=== PATIENT | female | born 2005 | race Caucasian/White ===

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

== ENCOUNTER 2023-04-23 11:40 | Emergency (ER) | payer SELFPAY ==
[2023-04-23 11:44] VITALS: BP 128/58; PULSE 78; RESP 14; O2SAT 97; BMI 29.9
[2023-04-23 11:50] VITALS: BP 128/58; PULSE 66; RESP 18; O2SAT 97
--- NOTE | 2023-04-23 12:06 | ED_ITS ---
HPI - Female Genitourinary General: Chief complaint: Urogenital-Female Stated complaint: not able to urinate, burning in vaginal area Time Seen by Provider: 04/23/23 11:47 History of Present Illness: Patient presents to the ER with inability to pee and burning. Patient says she did this started today and yesterday she was feeling fine. Patient states she is never had this for. Onset (ago): day(s) (Today) Location of symptoms: urethra and vaginal Severity: mild Urinary symptoms: Difficulty Urinating Exacerbating factors: none Relieving factors: none Associated symptoms: Reports no associated symptoms Review of Systems General: Reports: 10 or more systems reviewed and unremarkable except in HPI and below PFSH ED PFSH: Family History Other No pertinent family history Social History Smoking and tobacco status: never smoked Alcohol intake: never Substance/Drug Use: never Sexually active: No Do you think of yourself as: Straight/Heterosexual Current gender identity: Female Physical Exam Const: COMMON NORMALS: no acute distress, average body habitus, patient oriented x3, no limitations, healthy appearing, alert and well nourished HENMT: COMMON NORMALS: normocephalic, atraumatic, hearing grossly normal bilaterally, external ears normal, Normal external nose present and moist oral mucous membranes HEAD & SCALP: normocephalic and atraumatic NOSE: Normal external nose present EXTERNAL EAR: Yes external ears normal Eye: COMMON NORMALS: Equal, round and reactive pupils present, EOMs intact bilaterally, conjunctivae normal and no scleral icterus CONJUNCTIVA: Yes conjunctivae normal PUPIL: Yes Equal, round and reactive pupils present Neck/C-Spine: COMMON NORMALS: full ROM, no lymphadenopathy, supple, no meningeal signs, no JVD and Thyroid normal THYROID: Thyroid normal Chest: COMMONS NORMALS: normal inspection of the chest and normal palpation of entire chest wall Resp: COMMON NORMALS: normal respiratory effort, No retractions, No use of accessory muscles and clear to auscultation bilaterally AUSCULTATION: clear to auscultation bilaterally Cardio: COMMON NORMALS: no JVD, regular rate, regular rhythm, S1 normal heart sound present, S2 normal heart sound present, No gallops present (Cardio), No clicks present (Cardio), No murmurs present (Cardio) and No rub (Cardio) RATE: regular rate RHYTHM: regular rhythm HEART SOUNDS: S1 normal heart sound present and S2 normal heart sound present GI: COMMON NORMALS: Normal to inspection, nondistended, normoactive bowel sounds present, Soft to palpation, non-tender, No hepatosplenomegaly present and no masses PALPATION: Yes Soft to palpation and Yes No hepatosplenomegaly present Neuro: COMMON NORMALS: patient oriented x3 SENSORIUM/ORIENTATION: Yes alert MENINGEAL SIGNS: Yes no meningeal signs Course Vital Signs: Vital signs: Vital Signs Pulse Rate 66 04/23/23 11:50 Respiratory Rate 18 04/23/23 11:50 Blood Pressure 128/58 04/23/23 11:50 Pulse Oximetry 97 04/23/23 11:50 Oxygen Delivery Me thod Room Air 04/23/23 11:50 MDM - Female Medical Decision Making Patient had a bladder scan done that showed about 20 mL of urine in her bladder. Patient drank some water and then provide us urine sample which did show she has a urinary tract infection. Patient be placed on Cipro antibiotics and discharged home to follow-up with her PCP in approximately 1 week as needed. Differential Diagnosis Unlikely abdominal pain, acute appendicitis, calculus of kidney, constipation, diverticulitis, endometriosis, gastroenteritis, pancreatitis or small bowel obstruction Medical Records I reviewed the patient's medical records. Lab Data I reviewed the patient's lab results. Laboratory Results Urine Color Straw (Yellow) 04/23/23 Unknown Urine Appearance Hazy (CLEAR) A 04/23/23 Unknown Urine pH 7 (5-7) 04/23/23 Unknown Ur Specific [place] 1.005 (1.005-1.030) 04/23/23 Unknown Urine Protein Neg (Negative) 04/23/23 Unknown Urine Glucose (UA) Norm (Normal) 04/23/23 Unknown Urine Ketones Negative (Negative) 04/23/23 Unknown Urine Blood 3+ (Negative) H 04/23/23 Unknown Urine Nitrate Negative (Negative) 04/23/23 Unknown Urine Bilirubin Neg (Negative) 04/23/23 Unknown Urine Urobilinogen Norm mg/dL (Negative) 04/23/23 Unknown Ur Leukocyte Esterase 2+ (Negative) H 04/23/23 Unknown Urine RBC 0-4 /hpf (0-2) H 04/23/23 Unknown Urine WBC 15-25 /hpf (0-5) H 04/23/23 Unknown Ur Squamous Epith Cells 0-4 /hpf (0-5) H 04/23/23 Unknown Amorphous Sediment Not Reportable 04/23/23 Unknown Urine Bacteria 2+ /hpf (NONE) H 04/23/23 Unknown Urine Mucus Trace /hpf 04/23/23 Unknown Discharge Plan Discharge Patient Disposition: Home Clinical Impression: Urinary tract infection Qualifiers: Urinary tract infection type: acute cystitis Hematuria presence: with hematuria Qualified Code(s): N30.01 - Acute cystitis with hematuria Condition: Stable Prescriptions: New ciprofloxacin HCl 500 mg tablet 500 mg PO Q12H Qty: 14 0RF Discharge Orders: Discharge ED (Routine); Ordered 04/23/23 Ordered By: Joseph Mendoza Referrals: Surjit Phillips FNP [Primary Care Provider] - 1 week Patient Instructions: Urinary Tract Infection in Women (ED) Activity Restrictions/Additional Instructions: Please push plenty of fluids. Please take all your antibiotics please follow-up with your PCP in approximately 7 to 10 days as needed. Coding Level of Care Code ED Parts Counter Sales Person for Marlo Hua
--- NOTE | 2023-04-23 12:54 | PC.NURSE ---
Pt given option by nurse if she would like to try PO hydration then try to give a UA instead of having IV hydration then straight cath. Dr. Mendoza is aware
[2023-04-23 14:21] LABS: Urine Appearance Hazy (CLEAR); Urine Color Straw (Yellow); pH Urine 7 (5-7)
[2023-04-23 14:22] LABS: Add Urine Microscopic? YES; Bilirubin Urine Neg (Negative); Blood Urine 3+ (Negative); Glucose Urine UA Norm (Normal); Ketones Urine Negative (Negative); Leukocyte Esterase Urine 2+ (Negative); Nitrate Urine Negative (Negative); Protein Urine Neg (Negative); Specific Gravity, Urine 1.005 (1.005-1.030); Urobilinogen Urine Norm (Negative)
[2023-04-23 14:23] LABS: Add Urine Culture? Yes; Bacteria Urine 2+ /hpf; Mucus Urine TRACE /hpf; RBC Urine 0-4 /hpf (0-2); Squamous Epithelial Cell Urine 0-4 /hpf (0-5); WBC Urine 15-25 /hpf (0-5)
[2023-04-23 14:41] VITALS: BP 115/84; PULSE 70; RESP 18; O2SAT 98
== END 2023-04-23 14:42 | disposition home or self-care (01) ==
PROVIDERS: Emergency Provider Emergency Medicine; PCP Registered Nurse
DX: N30.01 Acute cystitis with hematuria (principal)
CPT/HCPCS: 51798; 81001; 87077; 87086; 87186; 99283

== ENCOUNTER → 2023-08-08 09:49 | Outpatient (BNVA) | payer SELFPAY | PROVIDERS: PCP Registered Nurse; Visit Provider Registered Nurse | DX: R05.9 Cough, unspecified (principal); U07.1 COVID-19 | CPT/HCPCS: 87400; 87426 ==

== ENCOUNTER → 2023-10-17 14:53 | Outpatient (BNVA) | payer MEDICAID, SELFPAY | PROVIDERS: PCP Registered Nurse; Visit Provider Registered Nurse | DX: N92.6 Irregular menstruation, unspecified (principal); Z71.3 Dietary counseling and surveillance | CPT/HCPCS: 81025 ==

== ENCOUNTER 2024-06-11 14:38 | Outpatient (CLI) | payer BC, MEDICAID, SELFPAY ==
[2024-06-11 14:40] VITALS: BMI 32.9
[2024-06-11 14:50] VITALS: BP 136/92; PULSE 85
[2024-06-11 15:06] VITALS: BP 138/87; PULSE 75
[2024-06-11 15:21] VITALS: BP 129/83; PULSE 78
[2024-06-11 15:23] LABS: Basophils % 0.4 %; Eosinophils # 0.1 10^3/uL (0.0-0.8); Eosinophils % 0.5 %; Hematocrit 38.3 % (36-47); Lymphocytes % 28.6 %; Mean Corpuscular HGB Conc 35.5 g/dL (30-55); Mean Corpuscular Hemoglobin 31.1 pg (27-33); Mean Corpuscular Volume 87.4 fl (85-98); Mean Platelet Volume 12.6 fL (7.4-10.4); Monocytes % 9.1 %; Neutrophils # 6.44 10^3/uL (1.8-8.0); Nucleated Red Blood Cells % 0 %; Platelet Count 208 10^3/cmm (157-399); Red Blood Count 4.38 10^6/uL (3.85-5.65); Red Cell Distribution Width 13.4 % (12.1-15.1); White Blood Count 10.55 10^3/uL (4.5-13.0)
[2024-06-11 15:33] LABS: Urine Appearance Cloudy (CLEAR); Urine Color Yellow (Yellow)
[2024-06-11 15:34] LABS: Add Urine Microscopic? YES; Bilirubin Urine 1+ (Negative); Blood Urine Neg (Negative); Glucose Urine UA Norm (Normal); Ketones Urine 1+ (Negative); Leukocyte Esterase Urine 2+ (Negative); Nitrate Urine Positive (Negative); Protein Urine 1+ (Negative); Specific Gravity, Urine 1.015 (1.005-1.030); Urobilinogen Urine 1 mg/dL (Negative); pH Urine 5 (5-7)
[2024-06-11 15:35] VITALS: BP 136/92; PULSE 70
[2024-06-11 15:35] LABS: Add Urine Culture? Yes; Bacteria Urine 2+ /hpf; WBC Urine 15-25 /hpf (0-5)
[2024-06-11 15:45] LABS: Alanine Aminotransferase 9 U/L (0-33); Albumin Level 3.5 g/dL (3.5-5.2); Alkaline Phosphatase 226 U/L (35-105); Anion Gap 17.3 (5-19); Aspartate Amino Transferase 17 U/L (0-32); Blood Urea Nitrogen 11 mg/dL (6-20); Calcium 8.7 mg/dL (8.5-10.5); Carbon Dioxide 18 mmol/L (22-29); Chloride 106 mmol/L (98-107); Globulin 3.1 g/dL (1.3-4.6); Glomerular Filtration Rate 91.4 mL/min (90-130); Glucose 97 mg/dL (65-115); Osmolality Calculated 283 mOsm/kg (285-295); Potassium 4.3 mmol/L (3.5-5.1); Sodium 137 mmol/L (136-145); Total Bilirubin 0.3 mg/dL (0.15-1.2); Total Protein 6.6 g/dL (6.6-8.7); Uric Acid 9.9 mg/dL (2.4-5.7)
[2024-06-11 15:46] LABS: Urine Creatinine 339 mg/dL (28-217)
[2024-06-11 15:47] LABS: UPRO/UCREAT Ratio 0.22 mg/mg CR; Urine Protein Random 73 mg/dL
[2024-06-11 15:50] VITALS: BP 120/80; PULSE 74
== END 2024-06-11 16:08 | disposition home or self-care (01) ==
LOC: OPOB 14:39 → OBGYN 14:40
PROVIDERS: PCP Registered Nurse; Visit Provider Family Medicine
DX: O26.899 Other specified pregnancy related conditions, unspecified trimester (principal); Z3A.00 Weeks of gestation of pregnancy not specified
CPT/HCPCS: 80053; 81001; 82570; 84156; 84550; 85025; 87086

== ENCOUNTER 2024-06-19 01:18 | Inpatient (IN) | payer BC, MEDICAID, SELFPAY ==
[2024-06-19] VITALS (136 sets, daily range): BP systolic 114–171; BP diastolic 64–108; PULSE 53–91; RESP 15–18; TEMP 35.9–37.3; O2SAT 93–100; BMI 34.1
[2024-06-19 01:26] LABS: Basophils % 0.4 %; Eosinophils # 0.1 10^3/uL (0.0-0.8); Eosinophils % 0.7 %; Lymphocytes # 3.9 10^3/uL (1.5-6.5); Lymphocytes % 34.4 %; Mean Corpuscular HGB Conc 36.1 g/dL (30-55); Mean Corpuscular Hemoglobin 31.5 pg (27-33); Mean Corpuscular Volume 87.4 fl (85-98); Mean Platelet Volume 13.4 fL (7.4-10.4); Monocytes % 8.4 %; Neutrophils # 6.38 10^3/uL (1.8-8.0); Neutrophils % 55.8 %; Nucleated Red Blood Cells % 0 %; Platelet Count 200 10^3/cmm (157-399); Red Blood Count 4.35 10^6/uL (3.85-5.65); Red Cell Distribution Width 13.5 % (12.1-15.1); White Blood Count 11.41 10^3/uL (4.5-13.0)
[2024-06-19] MEDS: oxytocin 30 UNIT/500 ML BAG IV (01:53)
[2024-06-19] MEDS: dextrose 5%-lactated ringers 1,000 ML 125 ML IV ×2 (01:53→11:58)
[2024-06-19 02:22] LABS: Bilirubin Urine Negative (Negative); Blood Urine 2+ (Negative); Glucose Urine UA Negative (Normal); Ketones Urine Negative (Negative); Leukocyte Esterase Urine 1+ (Negative); Nitrate Urine Negative (Negative); Protein Urine 2+ (Negative); Specific Gravity, Urine 1.009 (1.005-1.030); Urine Appearance Clear (CLEAR); Urine Color Yellow (Yellow); Urobilinogen Urine 0.2 mg/dL (Negative)
[2024-06-19 02:25] LABS: Bacteria Urine None Seen /hpf; Hyaline Casts Urine 2.05 /lpf; RBC Urine 0-2 /hpf (0-2); Squamous Epithelial Cell Urine 0-5 /hpf (0-5)
[2024-06-19] MEDS: lactated ringers 1,000 ML 999 ML IV (04:45)
[2024-06-19 05:06] LABS: Urine Creatinine 41 mg/dL (28-217)
[2024-06-19 05:07] LABS: Urine Protein Random 53 mg/dL
[2024-06-19 05:08] LABS: UPRO/UCREAT Ratio 1.29 mg/mg CR
--- NOTE | 2024-06-19 06:24 | P.ANESASSM_ITS ---
Pre-Anesthetic Assessment Height/Weight: Height 1.65 m Weight 92.986 kg Temp Pulse BP Pulse Ox 97.8 F 80 139/67 98 06/19/24 00:45 06/19/24 06:20 06/19/24 06:20 06/19/24 06:18 Preop Diagnosis: IUP Labor epidural Familial anesthetic complications: none Was Beta Howard taken within 24 hours: N/A Was Clonidine taken within 24 hours: N/A Last intake: solid-2100, liquid- 0530 Social No alcohol and No tobacco Exam alert, oriented x 3 and clear to auscultation bilaterally Airway Mallampati: Class II Dentition: full History/ROS No significant history except as noted Pulmonary None reported CV/HEM None reported None reported Hepatic None reported GI None reported Metabolic None reported Musc/skel None reported Neuropsych None reported Anesthetic Plan ASA status: 2 Anesthesia: Anesthesia Evaluation and Regional (specify below) (epidural ) Risk of > 500 ml blood loss (7ml/kg in children): Yes, adequate IV access and fluids planned Medications/Allergies Home Medications Medication Instructions Recorded Confirmed Last Taken Type 1 cap PO DAILY 06/11/24 06/11/24 06/11/24 History Tums 06/11/24 Unknown History Allergies Allergy/AdvReac Type Severity Reaction Status Date / Time No Known Allergies Allergy Verified 06/11/24 16:14 Current Medications Generic Name Dose Route Start Last Admin Trade Name Freq PRN Reason Stop Dose Admin Oxytocin 30 unit in 500 mls @ 1 mls/hr 06/19/24 01:30 06/19/24 05:00 Pitocin IV 7 milliunit/min .Q24H SUAD 7 mls/hr Titration Protocol 1 MILLIUNIT/MIN Dextrose/Lactated Ringer's 1,000 mls @ 125 mls/hr 06/19/24 01:30 06/19/24 05:56 Dextrose 5%-Lactated Ringers IV 125 mls/hr .Q8H SUAD Infusion Lactated Ringer's 1,000 mls @ 999 mls/hr 06/19/24 04:44 06/19/24 05:56 Lactated Ringers IV Infused .Q1H1M PRN Infusion See label comments PFSH Anesthesia Family History Other No pertinent family history Social History Smoking and tobacco/nicotine status: never used tobacco/nicotine Alcohol intake: never Substance/Drug Use: never Sexually active: No Do you think of yourself as: Straight/Heterosexual Current gender identity: Female Female Reproductive History : 1 Data Anesthesia 06/19/24 00:33 06/19/24 05:30 Short CBC 06/19/24 Range/Units 00:33 WBC 11.41 (4.5-13.0) 10^3/uL Hgb 13.70 (12.4-14.8) g/dL Hct 38.0 (36-47) % MCV 87.4 (85-98) fl Plt Count 200 (157-399) 10^3/cmm Neut % (Auto) 55.8 % Neut # (Auto) 6.38 (1.8-8.0) 10^3/uL BMP 06/19/24 05:30 Sodium Cancelled Potassium Cancelled Chloride Cancelled Carbon Dioxide Cancelled BUN Cancelled Creatinine Cancelled Glucose Cancelled Calcium Cancelled Liver Function 06/19/24 Range/Units 05:30 Total Bilirubin Cancelled AST Cancelled ALT Cancelled Alkaline Phosphatase Cancelled Albumin Cancelled Urine 06/19/24 Range/Units 02:00 Urine Color Yellow (Yellow) Urine Appearance Clear (CLEAR) Urine pH 6.0 (5-7) Ur Specific [place] 1.009 (1.005-1.030) Urine Protein 2+ A (Negative) Urine Glucose (UA) Negative (Normal) Urine Ketones Negative (Negative) Urine Nitrate Negative (Negative) Urine Bilirubin Negative (Negative) Ur Leukocyte Esterase 1+ A (Negative) Urine RBC 0-2 (0-2) /hpf Urine WBC 11-20 H (0-5) /hpf Blood Bank 06/19/24 06/19/24 00:33 01:55 Blood Type Cancelled O Positive Rho(D) Type Cancelled Rh positive Antibody Screen Cancelled Negative Cardiac Studies: 2 No Data to Display Anesthesia Procedures Epidural Time Out Performed: Yes Consents Signed: Procedure Consent Consent: requested by attending/covering physician, from patient, risks and benefits reviewed and patient agrees to proceed Lumbar Level: L4-L5 Epidural procedure: sterile prep of area, 1% lidocaine to numb the area, 18 g needle, negative for paresthesia passed, neg for paresthesia, test dose given, 1.5% xylocaine 1:200k epi, 0.2% Ropivacaine bolus ml (5), placed PCEA, no systemic response, sterile dressing applied, L.U.D. no apparent complications and 0.2% Ropiavacaine @ mls/hr (13) Additional Comments: SCOUT 6cm, catheter easily threaded to 5cm in the space. VS monitored and remained stable throughout procedure. Pt educated on LICENSED PROSTHETIST/ORTHOTIST and reporting decreased pain with contractions.
--- NOTE | 2024-06-19 07:06 | P.HP_ITS ---
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 The patient has signs and symptoms consistent with preeclampsia without severe features. Patient had 4+ protein and increasing pedal edema on exam in the clinic yesterday. Patient had elevated blood pressures at the previous visit and was ruled out for preeclampsia with a protein creatinine ratio of 0.22. Creatinine ratio today was 1.29. This confirmed the diagnosis of preeclampsia. Patient had dilated from 2 to 3 to 4 cm upon arrival. Rest of the patient's has been unremarkable and care was appropriate. Patient is GBS negative. Patient was started on Pitocin and her contractions have slowly increased in intensity but remained irregular. Patient was uncomfortable enough to request epidural which was obtained. Prior to the epidural the patient did have severe elevations of blood pressure but these did resolve after epidural and no further severe blood pressure readings have been noted. The patient remains asymptomatic otherwise. Present Details : 1 Para: 0 Labs Rubella: Immune RPR: Negative GBS: Negative L&D/Induction Specific History Indication for induction OB: medical complication (Preeclampsia) Review of Systems 2 General: Reports: 10 or more systems reviewed and unremarkable except in HPI and below Medications/Allergies Home Medications Medication Instructions Recorded Confirmed Last Taken Type 1 cap PO DAILY 06/11/24 06/11/24 06/11/24 History Tums 06/11/24 Unknown History Allergies Allergy/AdvReac Type Severity Reaction Status Date / Time No Known Allergies Allergy Verified 06/11/24 16:14 PFSH TERRITORY SALES MANAGER MEDICAL 2 PFSH: Family History Other No pertinent family history Social History Smoking and tobacco/nicotine status: never used tobacco/nicotine Alcohol intake: never Substance/Drug Use: never Sexually active: No Do you think of yourself as: Straight/Heterosexual Current gender identity: Female Vitals/I&O/Wt Last Vital Signs Temp 97.8 F 06/19/24 00:45 Pulse 73 06/19/24 06:59 BP 136/76 08/06/24 06:57 Pulse Ox 98 06/19/24 06:59 O2 Del Method Room Air 06/19/24 00:03 06/18/24 06/19/24 06/19/24 22:59 06:59 14:59 Intake Total 1368.950 / 1368.950 Balance 1368.950 / 1368.950 Weight last 48 hrs Weight 92.986 kg Physical Exam 2 Const: COMMON NORMALS: no acute distress, patient oriented x3 and alert HENMT: COMMON NORMALS: normocephalic, atraumatic and moist oral mucous membranes Resp: COMMON NORMALS: normal respiratory effort and No retractions Cardio: COMMON NORMALS: no JVD, regular rate and regular rhythm GI: OTHER: gravid uterus Extremity: GENERAL: Yes edema Neuro: COMMON NORMALS: patient oriented x3, moves all extremities, no focal motor deficits and no sensory deficits noted Psych: COMMON NORMALS: mental status grossly normal, cooperative and normal affect Skin: COMMON NORMALS: no rashes or lesions noted Data 06/19/24 00:33 06/19/24 05:30 Results Labs OB ([facility]): 2 Blood Type O Positive 06/19/24 Antibody Screen Negative 06/19/24 Hct 38.0 % (36-47) 06/19/24 Hgb 13.70 g/dL (12.4-14.8) 06/19/24 Rho(D) Type Rh positive 06/19/24 Plt Count 200 10^3/cmm (157-399) 06/19/24 Uric Acid 9.9 mg/dL (2.4-5.7) H 06/11/24 HCG, Qual Positive (Negative) H 10/17/23 Micro Urine Specimen 06/11/24 A&P Assessment and plan (1) Term : (2) Preeclampsia: The patient does meet criteria for preeclampsia, but no evidence of severe features at this time. The patient has had severe elevations of blood pressure but not by 4 hours. Continue to monitor and if severe features to present then starting magnesium to prevent eclampsia would be appropriate. Otherwise, continue with induction. Qualifiers: Trimester: third trimester Qualified Code(s): O14.93 - Unspecified pre- eclampsia, third trimester Attestations 2 Medical Necessity Statement*: Patient admitted for induction of labor and preeclampsia. Likely she will be here greater than 2 midnights. Coding Level of Care Code Acute Code for Chg Fwd Diagnoses Term Z34.90 Pre-eclampsia in third trimester O14.93 Trimester: third trimester
[2024-06-19] MEDS: ROPivacaine syringe 100 MG/50 ML SYRINGE 10 MG EPIDURAL ×2 (10:01→13:53)
[2024-06-19] MEDS: ondansetron 2 mg/ML SDV 2 mL 4 MG IVP (12:24)
[2024-06-19] MEDS: miSOPROStol 200 mcg Tablet 800 MCG PR (15:12)
--- NOTE | 2024-06-19 15:39 | P.PCNOB_ITS ---
Delivery Note: Date of delivery: June 19, 2024 Pre-delivery diagnoses: Term intrauterine , preeclampsia Post-delivery diagnoses: Same Procedure: Continuous vaginal delivery Op report anesthesia: Epidural Estimated blood loss (mL): 400 Post Delivery Diagnoses: Preeclampsia: Qualifiers: Trimester: third trimester Qualified Code(s): O14.93 - Unspecified pre- eclampsia, third trimester Pre-Delivery Course: Patient was admitted for induction of labor. Patient was started on Pitocin and had artificial rupture of membranes this a.m. The patient progressed as expected to complete dilation. Delivery: Once patient was completely dilated patient was placed into the normal lithotomy position and started pushing with contractions. After 1 hour of pushing the patient delivered the infant's head followed by shoulder and the rest of the body. The infant was then placed onto the mother's abdomen.. Delay the cord was clamped and cut. Placenta was then delivered soon after. Review of the perineum showed a small second-degree perineal tear tear and 1 small right l abial tear. Significant bleeding was noted so rectal Cytotec was given. Second-degree perineal tear was then repaired with 2-0 Vicryl. Small right labial tear was repaired with 3-0 chromic. At the end the procedure the bleeding was minimal and uterus was firm. Post-Delivery Status: Stable A&P Assessment and plan (1) Spontaneous vaginal delivery: Proceed with routine care. (2) Preeclampsia: Continue to monitor for severe features. Qualifiers: Trimester: third trimester Qualified Code(s): O14.93 - Unspecified pre- eclampsia, third trimester Coding Level of Care Code Acute Code for Chg Fwd Diagnoses Spontaneous vaginal delivery O80 Pre-eclampsia in third trimester O14.93 Trimester: third trimester
[2024-06-19] MEDS: ibuprofen 800 mg tablet PO ×2 (16:13→21:22)
[2024-06-19] MEDS: docusate sodium 100 mg Capsule PO (17:42)
[2024-06-19] MEDS: lanolin oint 7 gm 1 APPLIC TOPICAL (17:43)
[2024-06-19] MEDS: benzocaine-menthol 78 gm Canister 1 SPRAY TOPICAL (17:43)
[2024-06-19] MEDS: HYDROcodone-acetaminophen 5-325 mg Tablet PO (18:07)
[2024-06-20] MEDS: HYDROcodone-acetaminophen 5-325 mg Tablet PO ×2 (00:22→09:12)
[2024-06-20 01:00] VITALS: BP 140/84; RESP 16
[2024-06-20 04:07] VITALS: BP 132/83; PULSE 71; RESP 16; TEMP 36.7; O2SAT 97
[2024-06-20 04:13] LABS: Hematocrit 29.8 % (36-47); Mean Corpuscular HGB Conc 35.6 g/dL (30-55); Mean Corpuscular Hemoglobin 31.4 pg (27-33); Mean Corpuscular Volume 88.2 fl (85-98); Mean Platelet Volume 12.3 fL (7.4-10.4); Platelet Count 162 10^3/cmm (157-399); Red Blood Count 3.38 10^6/uL (3.85-5.65); Red Cell Distribution Width 13.9 % (12.1-15.1); White Blood Count 14.64 10^3/uL (4.5-13.0)
[2024-06-20 04:36] LABS: Alanine Aminotransferase 7 U/L (0-33); Albumin Level 2.9 g/dL (3.5-5.2); Alkaline Phosphatase 179 U/L (35-105); Anion Gap 16.5 (5-19); Aspartate Amino Transferase 19 U/L (0-32); Blood Urea Nitrogen 14 mg/dL (6-20); Calcium 7.9 mg/dL (8.5-10.5); Carbon Dioxide 17 mmol/L (22-29); Chloride 110 mmol/L (98-107); Creatinine Clr Calc Pharmacy 101.1421; Globulin 2.3 g/dL (1.3-4.6); Glomerular Filtration Rate 70.7 mL/min (90-130); Glucose 82 mg/dL (65-115); Osmolality Calculated 288 mOsm/kg (285-295); Potassium 4.5 mmol/L (3.5-5.1); Sodium 139 mmol/L (136-145); Total Bilirubin 0.3 mg/dL (0.15-1.2); Total Protein 5.2 g/dL (6.6-8.7)
--- NOTE | 2024-06-20 06:55 | PM.OBGYDC ---
Discharge Providers OUTSOLE SCHEDULER Date of Admission: 06/19/24 01:18 Date of Discharge: 06/20/24 Attending Provider at Admission: Jason Alonzo MD Attending Provider at Discharge: Jason Alonzo MD Primary Care Provider: JEFF De La Cruz Diagnoses at Discharge Discharge Diagnosis (1) Spontaneous vaginal delivery: Status: Acute (2) Preeclampsia: Status: Acute Qualifiers: Trimester: third trimester Qualified Code(s): O14.93 - Unspecified pre-eclampsia, third trimester Reason for Visit Reason for Visit: IOL Brief History: This is a 18-year-old that presented for induction of labor due to preeclampsia. Hospital Course Hospital Course The patient underwent successful induction and delivered a viable infant male vaginally without complication. Patient did have some bleeding afterwards that was improved with medications. Patient did have severe blood pressures at the time of her epidural but none since. Patient's blood pressure has been stable after delivery without significant elevation. Patient's care was unremarkable. Information Peripartum Data: Delivery Method: Vaginal Physical Exam Const: COMMON NORMALS: no acute distress, patient oriented x3 and alert HENMT: COMMON NORMALS: normocephalic, atraumatic and moist oral mucous membranes HEAD & SCALP: normocephalic and atraumatic Neck/C-Spine: COMMON NORMALS: no JVD Resp: COMMON NORMALS: normal respiratory effort and No retractions Cardio: COMMON NORMALS: no JVD, regular rate and regular rhythm RATE: regular rate RHYTHM: regular rhythm GI: OTHER: Uterus firm and below umbilicus Extremity: GENERAL: Yes edema Neuro: COMMON NORMALS: patient oriented x3, moves all extremities, no focal motor deficits and no sensory deficits noted SENSORIUM/ORIENTATION: Yes alert Psych: COMMON NORMALS: mental status grossly normal, cooperative and normal affect Skin: COMMON NORMALS: no rashes or lesions noted GENERAL SKIN EXAM: no rashes or lesions noted Urinary Catheter Management: Aranda: Cath Placed During This Visit: yes, but has since been removed by the nurse Reason for Continuing Indwelling Catheter: Decision to DC Catheter Urinary Catheter Date of Insertion: 06/19/24 Urinary Catheter Time of Insertion: 07:15 Date Urinary Catheter Removed: 06/19/24 Time Urinary Catheter Discontinued: 13:20 Discharge Data Studies Completed and Pending Laboratory Results WBC 14.64 10^3/uL (4.5-13.0) H 06/20/24 04:00 RBC 3.38 10^6/uL (3.85-5.65) L 06/20/24 04:00 Hgb 10.60 g/dL (12.4-14.8) L 06/20/24 04:00 Hct 29.8 % (36-47) L 06/20/24 04:00 MCV 88.2 fl (85-98) 06/20/24 04:00 MCH 31.4 pg (27-33) 06/20/24 04:00 MCHC 35.6 g/dL (30-55) 06/20/24 04:00 RDW 13.9 % (12.1-15.1) 06/20/24 04:00 Plt Count 162 10^3/cmm (157-399) 06/20/24 04:00 MPV 12.3 fL (7.4-10.4) H 06/20/24 04:00 Neut % (Auto) 55.8 % 06/19/24 00:33 Lymph % (Auto) 34.4 % 06/19/24 00:33 Terry % (Auto) 8.4 % 06/19/24 00:33 Eos % (Auto) 0.7 % 06/19/24 00:33 Baso % (Auto) 0.4 % 06/19/24 00:33 Neut # (Auto) 6.38 10^3/uL (1.8-8.0) 06/19/24 00:33 Lymph # (Auto) 3.9 10^3/uL (1.5-6.5) 06/19/24 00:33 Terry # (Auto) 1.0 10^3/uL (0.2-0.9) H 06/19/24 00:33 Eos # (Auto) 0.1 10^3/uL (0.0-0.8) 06/19/24 00:33 Baso # (Auto) 0.0 10^3/uL (0.0-0.1) 06/19/24 00:33 Nucleated RBC % (auto) 0 % 06/19/24 00:33 Nucleated RBCs # 0.0 /100WBC 06/19/24 00:33 Sodium 139 mmol/L (136-145) 06/20/24 04:00 Potassium 4.5 mmol/L (3.5-5.1) 06/20/24 04:00 Chloride 110 mmol/L (98-107) H 06/20/24 04:00 Carbon Dioxide 17 mmol/L (22-29) L 06/20/24 04:00 Anion Gap 16.5 (5-19) 06/20/24 04:00 BUN 14 mg/dL (6-20) 06/20/24 04:00 Creatinine 1.0 mg/dL (0.5-0.9) H 06/20/24 04:00 GFR Calculation 70.7 mL/min (90-130) L 06/20/24 04:00 Glucose 82 mg/dL (65-115) 06/20/24 04:00 Calculated Osmolality 288 mOsm/kg (285-295) 06/20/24 04:00 Uric Acid Cancelled 06/19/24 05:30 Calcium 7.9 mg/dL (8.5-10.5) L 06/20/24 04:00 Total Bilirubin 0.3 mg/dL (0.15-1.2) 06/20/24 04:00 AST 19 U/L (0-32) 06/20/24 04:00 ALT 7 U/L (0-33) 06/20/24 04:00 Alkaline Phosphatase 179 U/L (35-105) H 06/20/24 04:00 Total Protein 5.2 g/dL (6.6-8.7) L 06/20/24 04:00 Albumin 2.9 g/dL (3.5-5.2) L 06/20/24 04:00 Globulin 2.3 g/dL (1.3-4.6) 06/20/24 04:00 Urine Color Yellow (Yellow) 06/19/24 02:00 Urine Appearance Clear (CLEAR) 06/19/24 02:00 Urine pH 6.0 (5-7) 06/19/24 02:00 Ur Specific [place] 1.009 (1.005-1.030) 06/19/24 02:00 Urine Protein 2+ (Negative) A 06/19/24 02:00 Urine Glucose (UA) Negative (Normal) 06/19/24 02:00 Urine Ketones Negative (Negative) 06/19/24 02:00 Urine Blood 2+ (Negative) A 06/19/24 02:00 Urine Nitrate Negative (Negative) 06/19/24 02:00 Urine Bilirubin Negative (Negative) 06/19/24 02:00 Urine Urobilinogen 0.2 mg/dL (Negative) 06/19/24 02:00 Ur Leukocyte Esterase 1+ (Negative) A 06/19/24 02:00 Urine RBC 0-2 /hpf (0-2) 06/19/24 02:00 Urine WBC 11-20 /hpf (0-5) H 06/19/24 02:00 Ur Squamous Epith Cells 0-5 /hpf (0-5) 06/19/24 02:00 Amorphous Sediment Not Reportable 06/19/24 02:00 Urine Bacteria None seen /hpf (NONE) 06/19/24 02:00 Hyaline Casts 2.05 /lpf 06/19/24 02:00 U Random Total Protein 53 mg/dL 06/19/24 02:00 Urine Creatinine 41 mg/dL (28-217) 06/19/24 02:00 Protein/Creatinin Ratio 1.29 mg/mg CR 06/19/24 02:00 Blood Type O Positive 06/19/24 01:55 Rho(D) Type Rh positive 06/19/24 01:55 Antibody Screen Negative 06/19/24 01:55 Vitals Last Vital Signs Temp 98.0 F 06/20/24 04:07 Pulse 71 06/20/24 04:07 Resp 16 06/20/24 04:07 BP 132/83 06/20/24 04:07 Pulse Ox 97 06/20/24 04:07 O2 Del Method Room Air 06/20/24 04:07 Results Labs OB ([facility]): Blood Type O Positive 06/19/24 Antibody Screen Negative 06/19/24 Hct 29.8 % (36-47) L 06/20/24 Hgb 10.60 g/dL (12.4-14.8) L 06/20/24 Rho(D) Type Rh positive 06/19/24 Plt Count 162 10^3/cmm (157-399) 06/20/24 Uric Acid 9.9 mg/dL (2.4-5.7) H 06/11/24 HCG, Qual Positive (Negative) H 10/17/23 Micro Urine Specimen 06/11/24 Discharge Plan Discharge Patient Disposition: Home Condition: Stable Prescriptions: Continued 1 cap PO DAILY Tums Referrals: Jason Alonzo MD [Physician] - 6 Weeks Discharge Diet: Usual diet Discharge Activity: Limit activity as instructed Patient Instructions: Depression (DC), Opioid Safety (DC), Preeclampsia and Eclampsia After Delivery (GEN), Hemorrhage (DC), OB Discharge Report, OB Food/Drug Interaction Guide, OB Care at Home, Opioid Safety, OB Vaginal Deliveries, Abnormal Bleeding Discharge Attestations OUTSOLE SCHEDULER Time Spent in Discharge Care*: less than 30 min Coding Level of Care Code Acute Code for Chg Fwd Diagnoses Spontaneous vaginal delivery O80 Pre-eclampsia in third trimester O14.93 Trimester: third trimester
--- NOTE | 2024-06-20 08:00 | ANE.PACU2 ---
Inpatient post-anesthesia follow up: Airway intact: Yes Vital signs: Temperature 98.5 F Pulse Rate 67 Respiratory Rate 17 Blood Pressure 142/88 Pulse Oximetry 98 Oxygen Delivery Me thod Room Air Oxygen Flow Rate Fraction of Inspir ed Oxygen Hydration adequate: Yes Nausea and vomiting: No Pain level: 1 Mental status: Baseline Epidural Start/End: Epidural Start Date: 06/19/24 Epidural Start Time: 06:00 Epidural End Date: 06/19/24 Epidural End Time: 17:00
[2024-06-20] MEDS: PRENATAL VIT NO.130/IRON/FOLIC 1 EACH TABLET PO (08:54)
[2024-06-20] MEDS: docusate sodium 100 mg Capsule PO (08:54)
[2024-06-20] MEDS: ibuprofen 800 mg tablet PO ×2 (08:54→15:53)
[2024-06-20 11:15] VITALS: BP 137/89; PULSE 69; RESP 16; TEMP 36.6
[2024-06-20 16:01] VITALS: BP 128/82; PULSE 77; RESP 16; TEMP 36.8
[2024-06-20 17:46] VITALS: BP 142/88; PULSE 67; RESP 17; TEMP 36.9; O2SAT 98
[2024-06-20 18:39] VITALS: BP 142/88; PULSE 67; RESP 17; TEMP 36.9; O2SAT 98
== END 2024-06-20 18:39 | disposition home or self-care (01) | DRG 807 ==
LOC: OBGYN 07:46
PROVIDERS: Admitting Provider Family Medicine; PCP Registered Nurse; Visit Provider Family Medicine
DX: O14.04 Mild to moderate pre-eclampsia, complicating childbirth (principal); Z37.0 Single live birth; O70.1 Second degree perineal laceration during delivery; O72.1 Other immediate postpartum hemorrhage; Z3A.39 39 weeks gestation of pregnancy
CPT/HCPCS: 36415; 51702; 59025; 59409; 80053; 81001; 82570; 84156; 85025; 85027; 86850; 86900; 96374; 99211; J2405; J2590; J2795; J7120; J7121

== ENCOUNTER 2025-11-04 16:21 | Emergency (ER) | payer BC, MEDICAID, SELFPAY ==
--- OUTSIDE RECORDS SUMMARY | 2025-11-04 16:27 | XMS_ITS | Clinical Summary ---
Author Organization [facility] Address [address] [phone] Phone Care Team Providers Care Automobile Damage Appraiser Name Role Phone Unavailable Primary Care Provider Unavailabl e Allergies No known active allergies Medications No known medications Active Problems Problem Noted Date Diagnosed Date Migraine without aura and wi thout status migrainosus, not intractable 08/07/2025 Encounters Date Type Department Care Team Description 08/07/2025 4:15 PM CDT - 08/07/2025 6:47 PM CDT Emergency [facility] Emergency Medicine [address] [id number] Hima Gaviria MD Migraine without aura and without status migrainosus, not intractable (Primary Dx) Discharge Disposition: Home or Self Care 08/07/2025 Travel from Last 3 Months Social History Tobacco Use Types Packs/Day Years Used Date Smoking Tobacco: Never Smokeless Tobacco: Never Tobacco Cessation:Counseling Given: No Alcohol Use Standard Drinks/Week Comments Never 0 (1 standard drink = 0.6 oz pur e alcohol) Adolescent Education Answer Date Record ed Getting School Help Needed Not on file 06/24 Feeling Safe Answer Date Recorded Are you in a relationship wi th someone who hurts you emotionally and/or physically? No 08/07/2025 Comments No Sex and Gender Information Value Date Recorded Sex Assigned at Not on file Legal Sex Female 5:20 PM CDT Gender Identity Not on file Sexual Orientation Not on file Last Filed Vital Signs Vital Sign Reading Time Taken Comments Blood Pressure 109/62 08/07/2025 6:00 PM CDT Pulse 59 08/07/2025 6:00 PM CDT Temperature 35.8 C (96.4 F) 08/07/2025 4:19 PM CDT Respiratory Rate 16 08/07/2025 6:00 PM CDT Oxygen Saturation 98% 08/07/2025 6:00 PM CDT Inhaled Oxygen Concentration - - Weight 85.8 kg (189 lb 3.2 oz) 08/07/2025 4:19 P M CDT Height 165.1 cm (5' 5 ) 08/07/2025 4:19 PM CDT Body Mass Index 31.48 08/07/2025 4:19 PM CDT Plan of Treatment Health Maintenance Due Date Last Done Comments CHLAMYDIA SCREENING (ANNUAL) 11-24 YEARS 2014 HPV VACCINES (1 - 3-dose series) 2018 DTAP/TDAP/TD VACCINES (1 - Tdap) 2022 12/06/19 09 HEPATITIS B VACCINES (1 of 3 - 19+ 3-dose series) 05/2022 CERVICAL CANCER SCREENING 2024 HPV/Cotest (21-29) 2024 PAP SMEAR 2024 INFLUENZA VACCINE (#1) 2025 Procedures Procedure Name Priority Date/Time Associated Diagnosis Comments TSH Stat 08/07/2025 4:25 PM CDT COMPREHENSIVE METABOLIC PANEL Stat 08/07/2025 4:25 PM CDT CBC WITH DIFFERENTIAL Stat 08/07/2025 4:25 PM CDT from Last 3 Months Results * (ABNORMAL) CBC WITH DIFFERENTIAL (08/07/2025 4:25 PM CDT) WBC 8.4 4.0 - 10.0 K/uL 08/07/2025 5:12 PM CDT [facility] RBC 4.65 3.93 - 5.22 M/uL 08/07/2025 5:12 PM CDT [facility] HEMOGLOBIN 13.8 11.2 - 15.7 g/dL 08/07/2025 5:12 PM CDT [facility] HEMATOCRIT 38.0 34.1 - 44.9 % 08/07/2025 5:12 PM [facility] MCV 81.7 79.4 - 94.8 fL 08/07/2025 5:12 PM [facility] MCH 29.7 25.6 - 32.2 pg 08/07/2025 5:12 PM [facility] MCHC 36.3(H) 32.2 - 35.5 g/dL 08/07/2025 5:12 PM [facility] RDW 13.2 11.0 - 14.5 % 08/07/2025 5:12 PM [facility] RDW-STDEV 38.3 36.9 - 56.9 fL 08/07/2025 5:12 PM [facility] PLATELETS 338(H) 163 - 337 K/uL 08/07/2025 5:12 PM [facility] MPV 10.3 10.0 - 14.8 fL 08/07/2025 5:12 PM [facility] NEUTROPHILS 48 34 - 71 % 08/07/2025 5:12 PM [facility] LYMPHOCYTES 41 19 - 52 % 08/07/2025 5:12 PM [facility] MONOCYTES 9 5 - 13 % 08/07/2025 5:12 PM [facility] EOSINOPHILS 2 1 - 6 % 08/07/2025 5:12 PM [facility] BASOPHILS 0 0 - 1 % 08/07/2025 5:12 PM [facility] IMMATURE GRANULOCYTES 0 % 08/07/2025 5:12 PM [facility] NEUTROPHIL ABSOLUTE 4.03 1.56 - 6.13 K/uL 08/07/2025 5:12 PM [facility] LYMPHOCYTE ABSOLUTE 3.47(H) 1.20 - 3.40 K/uL 08/07/2025 5:12 PM [facility] MONOCYTE ABSOLUTE 0.76(H) 0.24 - 0.36 K/uL 08/07/2025 5:12 PM [facility] EOSINOPHIL ABSOLUTE 0.13 0.04 - 0.36 K/uL 08/07/2025 5:12 PM [facility] BASOPHILS ABSOLUTE 0.03 0.01 - 0.08 K/uL 08/07/2025 5:12 PM CDT [facility] IMMATURE GRANULOCYTES ABSOLUTE 0.02 K/uL 08/07/2025 5:12 PM CDT [facility] Blood BLOOD SPECIMEN / Unknown Collection / Unknown 08/07/2025 4:25 PM CDT 08/07/2025 5:09 PM CDT Hima Gaviria MD HEMATOLOGY ORDERABLES Final Res ult Performing Organization Address City/[facility]/ZIP Co de Phone Number [facility] CLIA # [id number] [address] [place] [id number] * TSH (08/07/2025 4:25 PM CDT) TSH 3.33 0.27 - 4.20 uIU/mL 08/07/2025 5:31 PM CDT [facility] Blood BLOOD SPECIMEN / Unknown Collection / Unknown 08/07/2025 4:25 PM CDT 08/07/2025 5:09 PM CDT Hima Gaviria MD CHEMISTRY ORDERABLES Final Resu lt Performing Organization Address City/[facility]/ZIP Co de Phone Number [facility] CLIA # [id number] [address] [place] [id number] * (ABNORMAL) COMPREHENSIVE METABOLIC PANEL (08/07/2025 4:25 PM CDT) SODIUM 140 136 - 145 mmol/L 08/07/2025 5:31 PM CDT [facility] POTASSIUM 3.9 3.5 - 5.1 mmol/L 08/07/2025 5:31 PM CDT [facility] CHLORIDE 104 98 - 107 mmol/L 08/07/2025 5:31 PM CDT [facility] CO2 23 22 - 29 mmol/L 08/07/2025 5:31 PM CDT [facility] CALCIUM 9.1 8.6 - 10.0 mg/dL 08/07/2025 5:31 PM [facility] BUN 13 6 - 20 mg/dL 08/07/2025 5:31 PM [facility] CREATININE 0.66 0.51 - 0.95 mg/dL 08/07/2025 5:31 PM [facility] GLUCOSE 102(H) 74 - 99 mg/dL 08/07/2025 5:31 PM [facility] TOTAL PROTEIN 7.9 6.6 - 8.7 g/dL 08/07/2025 5:31 PM [facility] ALBUMIN 4.6 3.5 - 5.2 g/dL 08/07/2025 5:31 PM [facility] BILIRUBIN TOTAL 0.4 0.0 - 1.2 mg/dL 08/07/2025 5:31 PM [facility] ALKALINE PHOSPHATASE 121(H) 35 - 104 U/L 08/07/2025 5:31 PM [facility] AST 24 0 - 35 U/L 08/07/2025 5:31 PM [facility] ALT 13 0 - 35 U/L 08/07/2025 5:31 PM [facility] GFR >60 >=60 mL/min/1.7 3 sq meter 08/07/2025 5:31 PM [facility] Comment:eGFR calculated with 2020 CKD-EPI equation. Vegetarian diet, extremely high or low muscle mass, and may affect results. Cystatin C with Glomerular Filtration Rate is a suitable alternative for these patients. ANION GAP 13 5 - 20 mmol/L 08/07/2025 5:31 PM [facility] Blood BLOOD SPECIMEN / Unknown Collection / Unknown 08/07/2025 4:25 PM CDT 08/07/2025 5:09 PM CDT us Hima Gaviria MD CHEMISTRY ORDERABLES Final Resu lt [facility] CLIA # [id number] [address] [facility] [address] [place] [address] from Last 3 Months Insurance [facility] [employer]
[2025-11-04 16:32] VITALS: BP 97/61; PULSE 110; RESP 18; TEMP 36.8; O2SAT 97
[2025-11-04 16:34] VITALS: BP 140/80; PULSE 92; O2SAT 98
[2025-11-04 17:07] LABS: Hematocrit 38.5 % (36-47); Hemoglobin 13.90 g/dL (11.27-16.99); Mean Corpuscular HGB Conc 36.1 g/dL (30-55); Mean Corpuscular Hemoglobin 30.4 pg (27-33); Mean Corpuscular Volume 84.2 fl (85-98); Nucleated Red Blood Cells % 0 %; Platelet Count 275 10^3/cmm (157-399); Red Blood Count 4.57 10^6/uL (3.85-5.65); White Blood Count 11.18 10^3/uL (3.29-11.43)
--- NOTE | 2025-11-04 17:13 | ED_ITS ---
Documented by User: BRADEN Mcfarland 11/04/25 17:53 HPI - Nausea/Vomiting/Diarrhea 2 General: Chief complaint: Nausea/Vomiting/Diarrhea Stated complaint: abdominal pain Time Seen by Provider: 11/04/25 16:50 Source: patient Mode of arrival: ambulatory Limitations: no limitations History of Present Illness: Patient is a 20-year-old female who presents to the emergency department complaining of upper abdominal pain beginning earlier today. Notes sudden onset, accompanied by nausea vomiting and diarrhea. Notes 3 total episodes of vomiting, as she last vomited in the later room. Denies any sick contact exposure. Her abdominal pain is to the epigastric region, there is no radiation noted and she denies any history of pancreatitis or alcohol consumption. No history of stomach ulcer and denies any bright red blood with her emesis or dark tarry stools. States that she has been on sertraline since giving earlier this year, for depression but otherwise has not began any new recent medications. Denies possibility of . No vaginal bleeding, no urinary symptoms. No history of abdominal surgeries. Denies any fever or chills. Mildly tachycardic at this time, rest of her vitals are stable. MD elicited complaint: nausea, vomiting, diarrhea and abdominal pain Onset (ago): hour(s) Associated nausea: Yes Associated abdominal pain: Yes Location of pain: Epigastric Pain consistency: constant Severity: mild Quality: cramping Exacerbating factors: none Relieving factors: none Associated symtoms: Reports nausea; Denies chest pain, diaphoresis, dizziness, dysuria, headache(s) or palpitations Related Data Home Medications ?Medication ?Instructions ?Recorded ?Confirmed 1 cap PO DAILY 06/11/2401/08 Tums 06/11/24 11/15/24 Previous Rx's ?Medication ?Instructions ?Recorded amoxicillin 875 mg-potassium 1 tab PO BID #14 tabs 01/08 clavulanate 125 mg tablet promethazine-DM 6.25 mg-15 mg/5 mL 5 ml PO Q6H PRN cou gh #118 mL 11/15/24 oral syrup ondansetron 4 mg disintegrating 4 mg PO TID PRN nausea and 11/04/25 tablet vomiting #30 tabs Allergies Allergy/AdvReac Type Severity Reaction Status Date / Time No Known Allergies Allergy Verified 11/15/24 15:29 Review of Systems 2 General: Reports: 10 or more systems reviewed and unremarkable except in HPI and below Const: Denies: fever(s), chills, change in appetite, change in weight or diaphoresis ENMT: Denies: throat pain or hoarseness Card: Denies: chest pain, palpitations or lightheadedness Resp: Denies: dyspnea, productive cough or wheezing GI: Reports: abdominal pain, nausea, vomiting and diarrhea; Denies: hematemesis, coffee ground emesis, hematochezia or melena : Denies: flank pain, difficulty voiding, dysuria, urinary frequency or urinary urgency Musc: Denies: neck pain or back pain Skin/Breast: Denies: rash or new lesions Neuro: Denies: headache(s) or dizziness PFSH ED 2 PFSH: Medical History Spontaneous vaginal delivery Preeclampsia Family History Other No pertinent family history Social History Smoking and tobacco/nicotine status: never used tobacco/nicotine Alcohol intake: never Substance/Drug Use: never Sexually active: No Do you think of yourself as: Straight/Heterosexual Current gender identity: Female Physical Exam 2 Const: COMMON NORMALS: no acute distress, average body habitus, patient oriented x3, no limitations, healthy appearing, alert and well nourished G ENERAL APPEARANCE: cooperative and comfortable ORIENTATION/CONSCIOUSNESS: Yes awake OTHER: nontoxic Resp: COMMON NORMALS: normal respiratory effort, No retractions, No use of accessory muscles and clear to auscultation bilaterally AUSCULTATION: clear to auscultation bilaterally, no crackles, no rales, no rhonchi and no wheezes Cardio: COMMON NORMALS: regular rate, regular rhythm, No gallops present (Cardio), No clicks present (Cardio), No murmurs present (Cardio) and No rub (Cardio) RATE: regular rate RHYTHM: regular rhythm GI: COMMON NORMALS: Normal to inspection, nondistended, normoactive bowel sounds present, Soft to palpation, No hepatosplenomegaly present and no masses AUSCULTATION: Yes normoactive bowel sounds PALPATION: Yes Soft to palpation, Yes Tenderness to palpation present (GI) (mild upper TTP), No Guarding due to palpation present (GI), No Rigid due to palpation and Yes No hepatosplenomegaly present RECTAL EXAM: deferred Extremity: COMMON NORMALS: normal to inspection and full ROM Neuro: COMMON NORMALS: patient oriented x3, moves all extremities, no focal motor deficits and no sensory deficits noted SENSORIUM/ORIENTATION: Yes alert Psych: COMMON NORMALS: mental status grossly normal, cooperative and speech normal SPEECH: Yes normal speech Skin: COMMON NORMALS: no rashes or lesions noted GENERAL SKIN EXAM: no rashes or lesions noted Course 2 Vital Signs: Vital signs: Vital Signs Temperature 98.3 F 11/04/25 16:32 Pulse Rate 88 11/04/25 17:51 Respiratory Rate 18 11/04/25 16:32 Blood Pressure 140/86 11/04/25 17:51 Pulse Oximetry 97 11/04/25 17:51 Oxygen Delivery Me thod Room Air 11/04/25 16:34 MDM - Nausea/Vomiting/Diarrhea Medical Decision Making Patient presented with nausea vomiting diarrhea beginning today associated with upper abdominal pain. Clinically stable at time of examination tender to palpation in the upper abdomen but nonspecific. No previous abdominal surgeries, overall she appeared nontoxic and has not had any vomiting since my time of examination. Vitals have been stable, she has been afebrile. Lab workup ordered and interpreted, her CBC does not reveal any leukocytosis or anemia, her metabolic panel shows no significant metabolic derangement, her serum is negative, urinalysis showing no signs of UTI, and lipase negative. She notes significant improvement following Zofran and Tylenol here in the emergency department, I suspect benign etiology such as viral gastroenteritis though other etiologies were considered such as pancreatitis, cholecystitis, inflammatory bowel disease, and IBS. These are felt to be less likely in this clinical setting with her improvement and normal overall laboratory evaluation. Feel that imaging at this time is not warranted, though she is counseled on signs and symptoms to watch for that would warrant return to the emergency department for further evaluation. She agrees to this plan at this time, we will treat symptomatically as an outpatient with antiemetics, she is encouraged to start with bland diet and advance as tolerated and to continue Motrin and Tylenol for pain. Lab Data 11/04/25 16:59 11/04/25 16:59 Laboratory Results WBC 11.18 10^3/uL (3.29-11.43) 11/04/25 16:59 RBC 4.57 10^6/uL (3.85-5.65) 11/04/25 16:59 Hgb 13.90 g/dL (11.27-16.99) 11/04/25 16:59 Hct 38.5 % (36-47) 11/04/25 16:59 MCV 84.2 fl (85-98) L 11/04/25 16:59 MCH 30.4 pg (27-33) 11/04/25 16:59 MCHC 36.1 g/dL (30-55) 11/04/25 16:59 RDW 13.0 % (12.1-15.1) 11/04/25 16:59 Plt Count 275 10^3/cmm (157-399) 11/04/25 16:59 MPV 10.3 fL (7.4-10.4) 11/04/25 16:59 Neut % (Auto) 86.3 % 11/04/25 16:59 Lymph % (Auto) 6.1 % 11/04/25 16:59 [place] % (Auto) 6.8 % 11/04/25 16:59 Eos % (Auto) 0.2 % 11/04/25 16:59 Baso % (Auto) 0.3 % 11/04/25 16:59 Neut # (Auto) 9.66 10^3/uL (1.8-7.7) H 11/04/25 16:59 Lymph # (Auto) 0.7 10^3/uL (0.8-4.8) L 11/04/25 16:59 [place] # (Auto) 0.8 10^3/uL (0.2-0.9) 11/04/25 16:59 Eos # (Auto) 0.0 10^3/uL (0.0-0.8) 11/04/25 16:59 Baso # (Auto) 0.0 10^3/uL (0.0-0.1) 11/04/25 16:59 Nucleated RBC % (auto) 0 % 11/04/25 16:59 Nucleated RBCs # 0.0 /100WBC 11/04/25 16:59 Sodium 138 mmol/L (136-145) 11/04/25 16:59 Potassium 4.2 mmol/L (3.5-5.1) 11/04/25 16:59 Chloride 102 mmol/L (98-107) 11/04/25 16:59 Carbon Dioxide 23 mmol/L (22-29) 11/04/25 16:59 Anion Gap 17.2 (5-19) 11/04/25 16:59 BUN 16 mg/dL (6-20) 11/04/25 16:59 Creatinine 0.7 mg/dL (0.5-0.9) 11/04/25 16:59 GFR Calculation 104.6 mL/min (90-130) 11/04/25 16:59 Glucose 112 mg/dL (65-115) 11/04/25 16:59 Calculated Osmolality 288 mOsm/kg (285-295) 11/04/25 16:59 Calcium 8.9 mg/dL (8.5-10.5) 11/04/25 16:59 Total Bilirubin 1.1 mg/dL (0.15-1.2) 11/04/25 16:59 AST 19 U/L (0-32) 11/04/25 16:59 ALT 14 U/L (0-33) 11/04/25 16:59 Alkaline Phosphatase 121 U/L (35-105) H 11/04/25 16:59 Total Protein 7.5 g/dL (6.6-8.7) 11/04/25 16:59 Albumin 4.6 g/dL (3.5-5.2) 11/04/25 16:59 Globulin 2.9 g/dL (1.3-4.6) 11/04/25 16:59 Lipase 16 U/L (13-60) 11/04/25 16:59 HCG, Qual Negative (Negative) 11/04/25 16:59 Urine Color Yellow (Yellow) 11/04/25 17:13 Urine Appearance Clear (CLEAR) 11/04/25 17:13 Urine pH Not Reportable 11/04/25 17:13 Ur Specific [place] Not Reportable 11/04/25 17:13 Urine Protein Not Reportable 11/04/25 17:13 Urine Glucose (UA) Not Reportable 11/04/25 17:13 Urine Ketones Not Reportable 11/04/25 17:13 Urine Blood Not Reportable 11/04/25 17:13 Urine Nitrate Not Reportable 11/04/25 17:13 Urine Bilirubin Not Reportable 11/04/25 17:13 Urine Urobilinogen Not Reportable 11/04/25 17:13 Ur Leukocyte Esterase Not Reportable 11/04/25 17:13 Urine WBC 0-4 /hpf (0-5) H 11/04/25 17:13 Ur Squamous Epith Cells 10-15 /hpf (0-5) H 11/04/25 17:13 Amorphous Sediment Not Reportable 11/04/25 17:13 Urine Bacteria 2+ /hpf (NONE) H 11/04/25 17:13 No radiology studies performed this visit Discharge Plan Discharge Patient Disposition: Home Clinical Impression: Gastroenteritis Condition: Stable Prescriptions: New ondansetron 4 mg tablet,disintegrating 4 mg PO TID PRN (Reason: nausea and vomiting) Qty: 30 0RF No Action promethazine-DM 6.25-15 mg/5 mL syrup 5 ml PO Q6H PRN (Reason: cough) Qty: 118 0RF amoxicillin-pot clavulanate 875-125 mg tablet 1 tab PO BID Qty: 14 0RF 1 cap PO DAILY Tums Discharge Orders: Discharge ED (Routine); Ordered 11/04/25 Ordered By: Julio Villalba Referrals: Surjit Phillips FNP [Primary Care Provider, Family Practice] Patient Instructions: Patient Portal & Arnel Instructions Activity Restrictions/Additional Instructions: Discharge Instructions Diagnosis: Viral Gastroenteritis What You Need to Know: You were diagnosed with viral gastroenteritis, which is an infection of the stomach and intestines caused by a virus. This is commonly called the stomach flu. Your symptoms should improve over the next few days with proper care at home. Hydration - Most Important: - Drink plenty of fluids to replace what you've lost through vomiting and diarrhea - Drink small amounts frequently rather than large amounts at once - Good options include: water, sports drinks (like Gatorade or Pedialyte), clear broths, and diluted fruit juices - Avoid alcohol and caffeine as these can make dehydration worse - Signs you're drinking enough: urinating regularly and urine is light yellow in color Diet: - Start eating as soon as you feel able - there's no need to wait - Begin with bland, kujr-lf-asjvuv foods such as: - Bananas - Rice - Applesauce - [place] - Crackers - Broiled or baked chicken - Plain pasta - Avoid dairy products for the first 24-48 hours as temporary lactose intolerance can occur - Avoid fatty, fried, or spicy foods until you're feeling better - Eat small, frequent meals rather than large ones Medications: - You may take [id number] anti-diarrheal medication (like Imodium) if needed for watery diarrhea - Do not take anti-diarrheal medication if you have bloody diarrhea or fever - Continue any regular medications unless instructed otherwise What to Expect: - Symptoms typically improve within 24-48 hours and resolve within a few days - Diarrhea may continue for several days even as you start feeling better - Fatigue is common and may last a few days Preventing Spread to Others: - Wash your hands frequently with soap and water, especially after using the bathroom and before eating - Avoid preparing food for others until at least 48 hours after symptoms resolve - Clean and disinfect bathroom surfaces regularly - Avoid close contact with others when possible Return to the Emergency Department or Call Your Doctor If: - You cannot keep down any fluids for more than 12 hours - You have signs of severe dehydration: - Very dark urine or no urination for 8+ hours - Extreme thirst - Dizziness when standing - Rapid heartbeat - Confusion or extreme weakness - You develop a high fever (temperature over 101.5?F or 38.6?C) - You see blood in your vomit or stool - You have severe abdominal pain that is getting worse - Your symptoms are not improving after 3 days or are getting worse - You develop new symptoms Follow-Up: - Follow up with your primary care doctor if symptoms persist beyond 3-5 days - No routine follow-up is needed if you recover as expected Print Language: [place]an Coding Level of Care Code ED Fbi Field Agent for Chg Fwd Documented by User: Giorgio Benavides DO 11/04/25 19:14 HPI - Nausea/Vomiting/Diarrhea 2 General: Chief complaint: Nausea/Vomiting/Diarrhea Stated complaint: abdominal pain Time Seen by Provider: 11/04/25 16:50 Related Data Home Medications ?Medication ?Instructions ?Recorded ?Confirmed 1 cap PO DAILY 06/11/2401/08 Tums 06/11/24 11/15/24 Previous Rx's ?Medication ?Instructions ?Recorded amoxicillin 875 mg-potassium 1 tab PO BID #14 tabs 01/08 clavulanate 125 mg tablet promethazine-DM 6.25 mg-15 mg/5 mL 5 ml PO Q6H PRN cou gh #118 mL 11/15/24 oral syrup ondansetron 4 mg disintegrating 4 mg PO TID PRN nausea and 11/04/25 tablet vomiting #30 tabs Allergies Allergy/AdvReac Type Severity Reaction Status Date / Time No Known Allergies Allergy Verified 11/15/24 15:29 PFSH ED 2 PFSH: Medical History Spontaneous vaginal delivery Preeclampsia Family History Other No pertinent family history Social History Smoking and tobacco/nicotine status: never used tobacco/nicotine Alcohol intake: never Substance/Drug Use: never Sexually active: No Do you think of yourself as: Straight/Heterosexual Current gender identity: Female Course 2 Vital Signs: Vital signs: Vital Signs Temperature 98.3 F 11/04/25 16:32 Pulse Rate 88 11/04/25 17:51 Respiratory Rate 18 11/04/25 16:32 Blood Pressure 140/86 11/04/25 17:51 Pulse Oximetry 97 11/04/25 17:51 Oxygen Delivery Me thod Room Air 11/04/25 16:34 MDM - Nausea/Vomiting/Diarrhea Medical Decision Making Patient presented with nausea vomiting diarrhea beginning today associated with upper abdominal pain. Clinically stable at time of examination tender to palpation in the upper abdomen but nonspecific. No previous abdominal surgeries, overall she appeared nontoxic and has not had any vomiting since my time of examination. Vitals have been stable, she has been afebrile. Lab workup ordered and interpreted, her CBC does not reveal any leukocytosis or anemia, her metabolic panel shows no significant metabolic derangement, her serum is negative, urinalysis showing no signs of UTI, and lipase negative. She notes significant improvement following Zofran and Tylenol here in the emergency department, I suspect benign etiology such as viral gastroenteritis though other etiologies were considered such as pancreatitis, cholecystitis, inflammatory bowel disease, and IBS. These are felt to be less likely in this clinical setting with her improvement and normal overall laboratory evaluation. Feel that imaging at this time is not warranted, though she is counseled on signs and symptoms to watch for that would warrant return to the emergency department for further evaluation. She agrees to this plan at this time, we will treat symptomatically as an outpatient with antiemetics, she is encouraged to start with bland diet and advance as tolerated and to continue Motrin and Tylenol for pain. Chart reviewed and patient discussed with midlevel. Agree with assessment and plan. Lab Data 11/04/25 16:59 11/04/25 16:59 Laboratory Results WBC 11.18 10^3/uL (3.29-11.43) 11/04/25 16:59 RBC 4.57 10^6/uL (3.85-5.65) 11/04/25 16:59 Hgb 13.90 g/dL (11.27-16.99) 11/04/25 16:59 Hct 38.5 % (36-47) 11/04/25 16:59 MCV 84.2 fl (85-98) L 11/04/25 16:59 MCH 30.4 pg (27-33) 11/04/25 16:59 MCHC 36.1 g/dL (30-55) 11/04/25 16:59 RDW 13.0 % (12.1-15.1) 11/04/25 16:59 Plt Count 275 10^3/cmm (157-399) 11/04/25 16:59 MPV 10.3 fL (7.4-10.4) 11/04/25 16:59 Neut % (Auto) 86.3 % 11/04/25 16:59 Lymph % (Auto) 6.1 % 11/04/25 16:59 [place] % (Auto) 6.8 % 11/04/25 16:59 Eos % (Auto) 0.2 % 11/04/25 16:59 Baso % (Auto) 0.3 % 11/04/25 16:59 Neut # (Auto) 9.66 10^3/uL (1.8-7.7) H 11/04/25 16:59 Lymph # (Auto) 0.7 10^3/uL (0.8-4.8) L 11/04/25 16:59 [place] # (Auto) 0.8 10^3/uL (0.2-0.9) 11/04/25 16:59 Eos # (Auto) 0.0 10^3/uL (0.0-0.8) 11/04/25 16:59 Baso # (Auto) 0.0 10^3/uL (0.0-0.1) 11/04/25 16:59 Nucleated RBC % (auto) 0 % 11/04/25 16:59 Nucleated RBCs # 0.0 /100WBC 11/04/25 16:59 Sodium 138 mmol/L (136-145) 11/04/25 16:59 Potassium 4.2 mmol/L (3.5-5.1) 11/04/25 16:59 Chloride 102 mmol/L (98-107) 11/04/25 16:59 Carbon Dioxide 23 mmol/L (22-29) 11/04/25 16:59 Anion Gap 17.2 (5-19) 11/04/25 16:59 BUN 16 mg/dL (6-20) 11/04/25 16:59 Creatinine 0.7 mg/dL (0.5-0.9) 11/04/25 16:59 GFR Calculation 104.6 mL/min (90-130) 11/04/25 16:59 Glucose 112 mg/dL (65-115) 11/04/25 16:59 Calculated Osmolality 288 mOsm/kg (285-295) 11/04/25 16:59 Calcium 8.9 mg/dL (8.5-10.5) 11/04/25 16:59 Total Bilirubin 1.1 mg/dL (0.15-1.2) 11/04/25 16:59 AST 19 U/L (0-32) 11/04/25 16:59 ALT 14 U/L (0-33) 11/04/25 16:59 Alkaline Phosphatase 121 U/L (35-105) H 11/04/25 16:59 Total Protein 7.5 g/dL (6.6-8.7) 11/04/25 16:59 Albumin 4.6 g/dL (3.5-5.2) 11/04/25 16:59 Globulin 2.9 g/dL (1.3-4.6) 11/04/25 16:59 Lipase 16 U/L (13-60) 11/04/25 16:59 HCG, Qual Negative (Negative) 11/04/25 16:59 Urine Color Yellow (Yellow) 11/04/25 17:13 Urine Appearance Clear (CLEAR) 11/04/25 17:13 Urine pH Not Reportable 11/04/25 17:13 Ur Specific [place] Not Reportable 11/04/25 17:13 Urine Protein Not Reportable 11/04/25 17:13 Urine Glucose (UA) Not Reportable 11/04/25 17:13 Urine Ketones Not Reportable 11/04/25 17:13 Urine Blood Not Reportable 11/04/25 17:13 Urine Nitrate Not Reportable 11/04/25 17:13 Urine Bilirubin Not Reportable 11/04/25 17:13 Urine Urobilinogen Not Reportable 11/04/25 17:13 Ur Leukocyte Esterase Not Reportable 11/04/25 17:13 Urine WBC 0-4 /hpf (0-5) H 11/04/25 17:13 Ur Squamous Epith Cells 10-15 /hpf (0-5) H 11/04/25 17:13 Amorphous Sediment Not Reportable 11/04/25 17:13 Urine Bacteria 2+ /hpf (NONE) H 11/04/25 17:13 Discharge Plan Discharge Patient Disposition: Home Clinical Impression: Gastroenteritis Condition: Stable Prescriptions: New ondansetron 4 mg tablet,disintegrating 4 mg PO TID PRN (Reason: nausea and vomiting) Qty: 30 0RF No Action promethazine-DM 6.25-15 mg/5 mL syrup 5 ml PO Q6H PRN (Reason: cough) Qty: 118 0RF amoxicillin-pot clavulanate 875-125 mg tablet 1 tab PO BID Qty: 14 0RF 1 cap PO DAILY Tums Discharge Orders: Discharge ED (Routine); Ordered 11/04/25 Ordered By: Julio Villalba Referrals: Jacqueline,Laurica, [facility] [employer] [facility] [Primary Care Provider, Family Practice] Patient Instructions: Patient Portal & Arnel Instructions Activity Restrictions/Additional Instructions: Discharge Instructions Diagnosis: Viral Gastroenteritis What You Need to Know: You were diagnosed with viral gastroenteritis, which is an infection of the stomach and intestines caused by a virus. This is commonly called the stomach flu. Your symptoms should improve over the next few days with proper care at home. Hydration - Most Important: - Drink plenty of fluids to replace what you've lost through vomiting and diarrhea - Drink small amounts frequently rather than large amounts at once - Good options include: water, sports drinks (like Gatorade or Pedialyte), clear broths, and diluted fruit juices - Avoid alcohol and caffeine as these can make dehydration worse - Signs you're drinking enough: urinating regularly and urine is light yellow in color Diet: - Start eating as soon as you feel able - there's no need to wait - Begin with bland, urem-rl-aixoki foods such as: - Bananas - Rice - Applesauce - [place] - Crackers - Broiled or baked chicken - Plain pasta - Avoid dairy products for the first 24-48 hours as temporary lactose intolerance can occur - Avoid fatty, fried, or spicy foods until you're feeling better - Eat small, frequent meals rather than large ones Medications: - You may take fsye-qhf-rifwqou anti-diarrheal medication (like Imodium) if needed for watery diarrhea - Do not take anti-diarrheal medication if you have bloody diarrhea or fever - Continue any regular medications unless instructed otherwise What to Expect: - Symptoms typically improve within 24-48 hours and resolve within a few days - Diarrhea may continue for several days even as you start feeling better - Fatigue is common and may last a few days Preventing Spread to Others: - Wash your hands frequently with soap and water, especially after using the bathroom and before eating - Avoid preparing food for others until at least 48 hours after symptoms resolve - Clean and disinfect bathroom surfaces regularly - Avoid close contact with others when possible Return to the Emergency Department or Call Your Doctor If: - You cannot keep down any fluids for more than 12 hours - You have signs of severe dehydration: - Very dark urine or no urination for 8+ hours - Extreme thirst - Dizziness when standing - Rapid heartbeat - Confusion or extreme weakness - You develop a high fever (temperature over 101.5?F or 38.6?C) - You see blood in your vomit or stool - You have severe abdominal pain that is getting worse - Your symptoms are not improving after 3 days or are getting worse - You develop new symptoms Follow-Up: - Follow up with your primary care doctor if symptoms persist beyond 3-5 days - No routine follow-up is needed if you recover as expected Print Language: [place]an Coding Level of Care Code ED [facility] Field Agent for Marlo Hua
[2025-11-04 17:17] LABS: Add Urine Microscopic? NO
[2025-11-04 17:17] LABS: HCG, Serum Qual Negative (Negative)
[2025-11-04 17:23] LABS: Alanine Aminotransferase 14 U/L (0-33); Albumin Level 4.6 g/dL (3.5-5.2); Alkaline Phosphatase 121 U/L (35-105); Anion Gap 17.2 (5-19); Aspartate Amino Transferase 19 U/L (0-32); Blood Urea Nitrogen 16 mg/dL (6-20); Calcium 8.9 mg/dL (8.5-10.5); Carbon Dioxide 23 mmol/L (22-29); Chloride 102 mmol/L (98-107); Globulin 2.9 g/dL (1.3-4.6); Glucose 112 mg/dL (65-115); Lipase 16 U/L (13-60); Osmolality Calculated 288 mOsm/kg (285-295); Potassium 4.2 mmol/L (3.5-5.1); Sodium 138 mmol/L (136-145); Total Protein 7.5 g/dL (6.6-8.7)
[2025-11-04 17:41] LABS: UA Manual Slide Review YES
[2025-11-04 17:42] LABS: Charge for UA Resulting for Rev
[2025-11-04 17:51] VITALS: BP 140/86; PULSE 88; O2SAT 97
== END 2025-11-04 17:57 | disposition home or self-care (01) ==
PROVIDERS: Emergency Provider Physician Assistant; PCP Registered Nurse
DX: K52.9 Noninfective gastroenteritis and colitis, unspecified (principal)
CPT/HCPCS: 36415; 80053; 81003; 83690; 84703; 85025; 99283; J9999; Q0162